=== PATIENT | male | born 1980 | race Caucasian/White ===

== ENCOUNTER 2016-04-17 06:00 | Emergency (ER) | payer OTHER ==
[~2016-04-17] VITALS: Ht 175.3 cm; Wt 140.9 kg
[~2016-04-17 06:00] MED LIST: FIORICET 50-301 EACH PO; IBUPROFEN600 MG PO; INDOCIN25 MG PO; MOTRIN800 MG PO; NOHOMEMEDS; PROTONIX20 MG PO; ULTRAM50 MG PO; ZOFRAN ODT4 MG PO
[2016-04-17] MEDS ORDERED: MEDROL DOSEPAK4 MG PO (07:25)
[2016-04-17] MEDS ORDERED: NAPROSYN500 MG PO (07:25)
[2016-04-17 07:46] VITALS: BP 132/88
== END 2016-04-17 07:47 | disposition home or self-care (01) ==
LOC: EME 06:00
DX: M72.2 Plantar fascial fibromatosis (principal)
CPT/HCPCS: 73630; 99281; 99283; J7512